=== PATIENT | female | born 1990 | race Caucasian/White ===

== ENCOUNTER 2020-11-19 00:25 | Emergency (ER) | payer MEDICAID, OTHER ==
[~2020-11-19] VITALS: Ht 160 cm; Wt 117.9 kg
[2020-11-19] MEDS ORDERED: SODIUM CHLORIDE 0.9% 1,000 ML IV ONE (00:45)
[2020-11-19] MEDS ORDERED: THIAMINE 100mg/ml INJ (200mg/2ml VIAL) IV ONE (00:45)
[2020-11-19] MEDS ORDERED: diazePAM 5 MG TAB PO ONE ×2 (00:45→06:30)
[2020-11-19] MEDS ORDERED: ACCU-CHEK COMFORT CURVE STRIP VI ONE (00:45)
[2020-11-19 01:35] LABS: Basophils # (auto) 0.1 10 ^3/uL (0-0.2); Basophils % (auto) 2.9 % (0.0-2.0); Eosinophils # (auto) 0.1 10 ^3/uL (0-0.8); Eosinophils % (auto) 1.1 % (0.0-7.0); Hematocrit 33.2 % (36.0-46.0); Hemoglobin 10.4 g/dL (12.2-16.2); Lymphocytes # (auto) 1.5 10 ^3/uL (0.4-5.4); Lymphocytes % (auto) 32.5 % (10.0-50.0); Mean Corpuscular Hemoglobin 23.7 pg (28.0-32.0); Mean Corpuscular Hgb Conc. 31.2 g/dL (32.0-36.0); Mean Corpuscular Volume 75.8 fL (80.0-100.0); Monocytes # (auto) 0.4 10 ^3/uL (0-1.3); Monocytes % (auto) 7.7 % (0.0-12.0); Neutrophils # (auto) 2.6 10 ^3/uL (1.6-8.6); Neutrophils % (auto) 55.8 % (37.0-80.0); Nucleated Red Blood Cells % 0.1 %; Platelet Count (auto) 219 10^3/uL (140-450); Red Blood Cells 4.38 10^6/uL (4.0-5.20); Red Cell Distribution Width 18.6 % (11.8-14.3); White Blood Cell 4.6 10^3/uL (4.4-10.8)
[2020-11-19 01:57] LABS: Albumin 3.5 g/dL (3.4-5.0); BUN/Creatinine Ratio 11.8; Calcium 8.4 mg/dL (8.5-10.1); Potassium 3.9 mmol/L (3.5-5.1)
[2020-11-19 02:00] LABS: Bilirubin, Total 0.6 mg/dL (0.2-1.0); Total Protein 7.7 g/dL (6.4-8.2)
[2020-11-19 03:42] LABS: Amphetamine Screen, Urine NEGATIVE (NEGATIVE); Barbiturate Scree,Urine NEGATIVE (NEGATIVE); Benzodiazephine Screen, Urine POSITIVE (NEGATIVE); Cannabinoid Screen, Urine NEGATIVE (NEGATIVE); Cocaine Screen, Urine NEGATIVE (NEGATIVE); Opiate Scree,Urine NEGATIVE (NEGATIVE); Phencyclidine Screen, Urine NEGATIVE (NEGATIVE)
[2020-11-19 03:52] LABS: Urine Bacteria FEW /hpf (None Seen); Urine Blood 1+ /uL (Negative); Urine Hyaline Cast FEW /lpf (0 - 2); Urine Mucus FEW (None Seen); Urine Specific Gravity 1.023 (1.001-1.035); Urine WBC 106 /hpf (0 - 5)
[2020-11-19] MEDS ORDERED: cefTRIAXone 1GM/50ML D5W 50 ML IV ONE (04:15)
[2020-11-19 05:00] VITALS: BP 147/84
== END 2020-11-19 07:13 | disposition left against medical advice (07) ==
LOC: EDBD 00:25 → ER 00:27
DX: F10.239 Alcohol dependence with withdrawal, unspecified (principal); R42 Dizziness and giddiness; Y90.8 Blood alcohol level of 240 mg/100 ml or more
CPT/HCPCS: 36415; 80053; 80307; 80320; 81001; 82962; 84484; 85025; 85049; 87086; 93005; 96361; 96374; 96375; 99284; J0696; J3411; J7030

== ENCOUNTER 2021-05-12 02:46 | Inpatient (IN) | payer MEDICAID ==
[~2021-05-12] VITALS: Ht 160 cm; Wt 104.0 kg
[2021-05-12] MEDS ORDERED: SODIUM CHLORIDE 0.9% 1,000 ML IV ONE (03:45)
[2021-05-12] MEDS ORDERED: LORazepam 2MG/ML-1ML VIAL IV ONE (03:45)
[2021-05-12 04:36] LABS: Basophils # (auto) 0.1 10 ^3/uL (0-0.2); Basophils % (auto) 2.2 % (0.0-2.0); Eosinophils # (auto) 0 10 ^3/uL (0-0.8); Eosinophils % (auto) 0.1 % (0.0-7.0); Lymphocytes % (auto) 13.9 % (10.0-50.0); Mean Corpuscular Hgb Conc. 31.5 g/dL (32.0-36.0); Mean Corpuscular Volume 76.1 fL (80.0-100.0)
[2021-05-12 04:39] LABS: Hematocrit 32.5 % (36.0-46.0); Hemoglobin 10.2 g/dL (12.2-16.2); Lymphocytes # (auto) 0.9 10 ^3/uL (0.4-5.4); Monocytes # (auto) 0.3 10 ^3/uL (0-1.3); Monocytes % (auto) 5.3 % (0.0-12.0); Neutrophils # (auto) 4.9 10 ^3/uL (1.6-8.6); Neutrophils % (auto) 78.5 % (37.0-80.0); Nucleated Red Blood Cells % 0.1 %; Red Blood Cells 4.27 10^6/uL (4.0-5.20); White Blood Cell 6.2 10^3/uL (4.4-10.8)
[2021-05-12 04:53] LABS: Albumin 3.8 g/dL (3.4-5.0); Calcium 8.5 mg/dL (8.5-10.1); Magnesium 1.9 mg/dL (1.6-2.6); Potassium 3.6 mmol/L (3.5-5.1)
[2021-05-12 04:57] LABS: BUN/Creatinine Ratio 11.5; Bilirubin, Total 1.3 mg/dL (0.2-1.0)
[2021-05-12 05:09] LABS: INR 1.07 (0.9-1.15); Red Cell Distribution Width 21.1 % (11.8-14.3)
[2021-05-12] MEDS ORDERED: ONDANSETRON HCL 4 MG/2 ML VIAL IV PRN (07:45)
[2021-05-12] MEDS ORDERED: DOCUSATE SOD 100 MG CAP PO PRN (07:45)
[2021-05-12] MEDS ORDERED: MORPHINE SULFATE INJECTION 2 MG/ML SYRG IV PRN ×2 (07:45)
[2021-05-12] MEDS ORDERED: NITROGLYCERIN 0.4 MG SL TAB SL PRN (07:45)
[2021-05-12] MEDS ORDERED: ACETAMINOPHEN 325 MG TAB PO PRN (07:45)
[2021-05-12] MEDS ORDERED: LORazepam 2MG/ML-1ML VIAL IV PRN ×2 (07:45→09:00)
[2021-05-12] MEDS ORDERED: HYDROcodone-ACET 5/325MG TAB PO PRN (07:45)
[2021-05-12] MEDS: SODIUM CHLORIDE 0.9% 1,000 ML IV SCH ×2 (08:00→16:05)
[2021-05-12] MEDS ORDERED: MULTIPLE VITAMIN 10 ML, MAGNESIUM SULF SDV 50% 8 MEQ, THIAMINE INJ 100 MG in D5W/SOD CH... IV ONE (08:45)
[2021-05-12] MEDS ORDERED: LORazepam 0.5 MG TAB PO PRN (09:00)
[2021-05-12] MEDS: ZINC SULFATE 220mg CAP or TAB PO SCH (09:50)
[2021-05-12] MEDS: ASCORBIC ACID 500 MG TAB PO SCH ×2 (09:52→22:08)
[2021-05-12] MEDS: MULTIPLE VITAMIN TAB PO SCH (09:52)
[2021-05-12] MEDS: FLUoxetine HCL 20 MG CAP PO SCH (09:52)
[2021-05-12] MEDS: clonazePAM 0.5 MG TAB PO SCH ×2 (09:52→22:08)
[2021-05-12] MEDS ORDERED: MULTIPLE VITAMIN 10 ML, MAGNESIUM SULF SDV 50% 8 MEQ, THIAMINE INJ 100 MG in D5W/SOD CH... IV SCH (12:00)
[2021-05-12 22:00] VITALS: BP 138/74
[2021-05-12] MEDS ORDERED: FLUO40CA2 PO (23:06)
[2021-05-12] MEDS ORDERED: CLON0.1T PO (23:06)
[2021-05-13] MEDS: SODIUM CHLORIDE 0.9% 1,000 ML IV SCH ×2 (03:05→09:23)
[2021-05-13 05:00] VITALS: BP 130/67
[2021-05-13 06:03] LABS: Basophils # (auto) 0 10 ^3/uL (0-0.2); Eosinophils # (auto) 0.1 10 ^3/uL (0-0.8); Lymphocytes # (auto) 1.2 10 ^3/uL (0.4-5.4); Monocytes # (auto) 0.2 10 ^3/uL (0-1.3); Neutrophils # (auto) 1.8 10 ^3/uL (1.6-8.6); White Blood Cell 3.3 10^3/uL (4.4-10.8)
[2021-05-13 06:06] LABS: Basophils % (auto) 1.4 % (0.0-2.0); Eosinophils % (auto) 2.5 % (0.0-7.0); Hematocrit 27.9 % (36.0-46.0); Hemoglobin 8.8 g/dL (12.2-16.2); Lymphocytes % (auto) 35.4 % (10.0-50.0); Mean Corpuscular Hemoglobin 24.4 pg (28.0-32.0); Mean Corpuscular Hgb Conc. 31.4 g/dL (32.0-36.0); Mean Corpuscular Volume 77.8 fL (80.0-100.0); Monocytes % (auto) 7.4 % (0.0-12.0); Neutrophils % (auto) 53.3 % (37.0-80.0); Nucleated Red Blood Cells % 0.3 %; Red Blood Cells 3.59 10^6/uL (4.0-5.20)
[2021-05-13 06:20] LABS: Potassium 3.1 mmol/L (3.5-5.1)
[2021-05-13 06:25] LABS: Albumin 3.1 g/dL (3.4-5.0); BUN/Creatinine Ratio 19.7
[2021-05-13 06:26] LABS: Bilirubin, Total 0.9 mg/dL (0.2-1.0); Total Protein 6.4 g/dL (6.4-8.2)
[2021-05-13 09:00] VITALS: BP 124/84
[2021-05-13] MEDS: clonazePAM 0.5 MG TAB PO SCH (09:21)
[2021-05-13] MEDS: ZINC SULFATE 220mg CAP or TAB PO SCH (09:22)
[2021-05-13] MEDS: MULTIPLE VITAMIN TAB PO SCH (09:22)
[2021-05-13] MEDS: FLUoxetine HCL 20 MG CAP PO SCH (09:22)
[2021-05-13] MEDS: ASCORBIC ACID 500 MG TAB PO SCH (09:22)
[2021-05-13] MEDS ORDERED: MULTIPLE VITAMIN 10 ML, MAGNESIUM SULF SDV 50% 8 MEQ, THIAMINE INJ 100 MG in D5W/SOD CH... IV SCH (12:00)
[2021-05-13 12:30] VITALS: BP 142/73
[2021-05-13] MEDS ORDERED: POTASSIUM CHL 20 Meq TABLET PO ONE (12:45)
[2021-05-13 14:23] LABS: Urine Bacteria NONE SEEN /hpf (None Seen); Urine Blood Negative /uL (Negative); Urine Mucus MANY (None Seen); Urine WBC 18 /hpf (0 - 5)
[2021-05-13 14:25] LABS: Urine Specific Gravity 1.015 (1.001-1.035)
[2021-05-13 16:51] VITALS: BP 143/84
[2021-05-13 17:03] VITALS: BP 140/80
== END 2021-05-13 17:40 | disposition home or self-care (01) | DRG 720 ==
LOC: ER 02:46 → EDBD 02:46 → TELE 07:35 → TELE-WESTW 20:15
PROVIDERS: ADMIT Internal Medicine; ATTEND Internal Medicine
DX: A41.9 Sepsis, unspecified organism (principal); I12.0 Hypertensive chronic kidney disease with stage 5 chronic kidney disease or end stage renal disease; N18.6 End stage renal disease; G40.909 Epilepsy, unspecified, not intractable, without status epilepticus; F41.9 Anxiety disorder, unspecified; F10.239 Alcohol dependence with withdrawal, unspecified; Z20.822 Contact with and (suspected) exposure to COVID-19; F13.239 Sedative, hypnotic or anxiolytic dependence with withdrawal, unspecified; Z79.899 Other long term (current) drug therapy; Z81.8 Family history of other mental and behavioral disorders; Z99.2 Dependence on renal dialysis
CPT/HCPCS: 36415; 70551; 80053; 81001; 83735; 84702; 85025; 85610; 87426; 95819; 96361; 96365; 96375; 96376; G0378; J2405

== ENCOUNTER 2021-09-15 20:05 | Emergency (ER) | payer MEDICAID ==
[~2021-09-15] VITALS: Ht 160 cm; Wt 104.3 kg
[~2021-09-15 20:05] MED LIST: CLON0.1T PO; FLUO40CA2 PO
[2021-09-15 21:31] LABS: Albumin 3.5 g/dL (3.4-5.0); BUN/Creatinine Ratio 11.8; Calcium 8.5 mg/dL (8.5-10.1); Potassium 3.4 mmol/L (3.5-5.1)
[2021-09-15 21:34] LABS: Bilirubin, Total 1.2 mg/dL (0.2-1.0); Total Protein 7.8 g/dL (6.4-8.2)
[2021-09-15 22:00] VITALS: BP 111/60
[2021-09-15] MEDS ORDERED: ACETAMINOPHEN 325 MG TAB PO ONE (22:00)
[2021-09-15] MEDS ORDERED: SODIUM CHLORIDE 0.9% 1,000 ML IV ONE (22:00)
[2021-09-15 22:34] LABS: Eosinophils # (auto) 0.1 10 ^3/uL (0-0.8); Hematocrit 32.6 % (36.0-46.0); Hemoglobin 10.3 g/dL (12.2-16.2); Monocytes # (auto) 0.2 10 ^3/uL (0-1.3); Neutrophils # (auto) 1.5 10 ^3/uL (1.6-8.6); White Blood Cell 2.8 10^3/uL (4.4-10.8)
[2021-09-15 22:35] LABS: Basophils # (auto) 0.1 10 ^3/uL (0-0.2); Basophils % (auto) 1.9 % (0.0-2.0); Eosinophils % (auto) 2.2 % (0.0-7.0); Lymphocytes % (auto) 35.3 % (10.0-50.0); Mean Corpuscular Hemoglobin 25.8 pg (28.0-32.0); Mean Corpuscular Hgb Conc. 31.7 g/dL (32.0-36.0); Mean Corpuscular Volume 81.5 fL (80.0-100.0); Monocytes % (auto) 7.8 % (0.0-12.0); Neutrophils % (auto) 52.8 % (37.0-80.0); Nucleated Red Blood Cells % 0.1 %
[2021-09-15 23:00] LABS: Red Cell Distribution Width 20.2 % (11.8-14.3)
== END 2021-09-15 23:38 | disposition home or self-care (01) ==
LOC: ER 20:08
DX: G40.909 Epilepsy, unspecified, not intractable, without status epilepticus (principal); I10 Essential (primary) hypertension
CPT/HCPCS: 36415; 70450; 71045; 80053; 84484; 85025; 93005; 96365; 99285; J1953; J7060

== ENCOUNTER 2022-02-23 17:28 | Emergency (ER) | payer MEDICAID ==
[~2022-02-23] VITALS: Ht 160 cm; Wt 90.0 kg
[2022-02-23 18:40] LABS: Basophils # (auto) 0.2 10 ^3/uL (0-0.2); Eosinophils # (auto) 0 10 ^3/uL (0-0.8); Eosinophils % (auto) 0.7 % (0.0-7.0); Nucleated Red Blood Cells % 0.1 %
[2022-02-23 18:42] LABS: Basophils % (auto) 5.9 % (0.0-2.0); Hematocrit 30.1 % (36.0-46.0); Hemoglobin 9.5 g/dL (12.2-16.2); Lymphocytes # (auto) 1.4 10 ^3/uL (0.4-5.4); Mean Corpuscular Hgb Conc. 31.4 g/dL (32.0-36.0); Mean Corpuscular Volume 76.5 fL (80.0-100.0); Monocytes # (auto) 0.2 10 ^3/uL (0-1.3); Monocytes % (auto) 4.8 % (0.0-12.0); Neutrophils # (auto) 1.9 10 ^3/uL (1.6-8.6); Neutrophils % (auto) 50.6 % (37.0-80.0); Red Blood Cells 3.94 10^6/uL (4.0-5.20); White Blood Cell 3.7 10^3/uL (4.4-10.8)
[2022-02-23 18:51] LABS: Red Cell Distribution Width 22.4 % (11.8-14.3)
[2022-02-23 18:56] LABS: Albumin 3.7 g/dL (3.4-5.0); BUN/Creatinine Ratio 12.5; Calcium 7.7 mg/dL (8.5-10.1); Potassium 3.6 mmol/L (3.5-5.1)
[2022-02-23 18:59] LABS: Bilirubin, Total 1.8 mg/dL (0.2-1.0); Total Protein 7.5 g/dL (6.4-8.2)
[2022-02-23 19:02] LABS: INR 1.13 (0.9-1.15); Partial Thromboplastin Time 23.6 sec (24.6-33.4)
[2022-02-24] MEDS ORDERED: ONDA-144 PO (00:28)
[2022-02-24] MEDS ORDERED: HYDROcodone-ACET 5/325MG TAB PO ONE (00:30)
[2022-02-24 01:05] VITALS: BP 112/68
== END 2022-02-24 04:14 | disposition home or self-care (01) ==
LOC: ER 17:28 → EDBD 17:28 → ER 02-24 04:14
DX: N93.9 Abnormal uterine and vaginal bleeding, unspecified (principal); D64.9 Anemia, unspecified; Z86.2 Personal history of diseases of the blood and blood-forming organs and certain disorders involving the immune mechanism; Z79.899 Other long term (current) drug therapy
CPT/HCPCS: 36415; 74176; 76830; 76856; 80053; 85025; 85610; 85730; 86850; 86900; 86901